=== PATIENT | male | born 1990 | race Hispanic/Latino ===

== ENCOUNTER 2017-02-06 21:25 | Emergency (ER) | payer SELFPAY ==
[2017-02-06 21:40] LABS: Bilirubin Negative (Negative); Blood, Urine Negative (Negative); Glucose, Urine (Dipstick) Negative (Negative); Ketone, Urine Negative (Negative); Nitrite Negative (Negative); Protein, Urine (Dipstick) Negative (Neg-Trace); Urobilinogen 0.2 mg/dL (0.2-1.0)
[2017-02-06 21:52] LABS: Bacteria/HPF None Seen HPF (None Seen); RBC/HPF 0-3 HPF (0-3); Squamous Epithelial 0-3 HPF (0-3); WBC/HPF 0-3 HPF (0-3)
[2017-02-06 21:53] LABS: Hyaline Casts/LPF NONE SEEN LPF (0-3 Hyaline)
[2017-02-06] MEDS ORDERED: Azithromycin 250 MG TAB ONE (23:40)
[2017-02-06] MEDS ORDERED: cefTRIAXone\\ROCEPHIN 250 MG VIAL ONE (23:40)
== END 2017-02-07 00:02 | disposition home or self-care (01) ==
LOC: ERS 21:25
DX: R36.9 Urethral discharge, unspecified (principal); F17.210 Nicotine dependence, cigarettes, uncomplicated
CPT/HCPCS: 81003; 81015; 87491; 87591; 96372; J0696